=== PATIENT | male | born 1955 | race Caucasian/White ===

== ENCOUNTER 2017-10-06 18:45 | Emergency (ER) | payer OTHER ==
[~2017-10-06] VITALS: Ht 188 cm; Wt 83.9 kg
[~2017-10-06 18:45] MED LIST: CLEOCIN HCL150 MG PO; NOHOMEMEDICATIONS
[2017-10-06] MEDS ORDERED: KEFLEX500 M1 PO (19:52)
== END 2017-10-06 20:25 | disposition home or self-care (01) ==
LOC: ER 18:45
DX: R60.0 Localized edema (principal); Z59.0 Homelessness; F20.9 Schizophrenia, unspecified; Z98.890 Other specified postprocedural states; F17.200 Nicotine dependence, unspecified, uncomplicated

== ENCOUNTER 2018-10-02 07:47 | Emergency (ER) | payer OTHER ==
[~2018-10-02] VITALS: Ht 190.5 cm; Wt 81.7 kg
--- NOTE | ~2018-10-02 | EKG ---
[place] [address] [employer] [place] [address] ELECTROCARDIOGRAM REPORT Name: NATE AHN Room #: DEP Ar#: [id number] Admission: 10/02/18 Attend Phys: Discharge: 10/02/18 Date of : 55 Report #: [id number] THIS REPORT FOR: //name// [facility] ED Test Date: 2018-10-02 Test Time: 08:47:26 Pat Name: NATE AHN Department: Room: Gender: M Swedger: kf : 1955 Requested By: Price Rojo Order Number: [id number] MD: Geronimo Cesar Measurements Intervals [place] Rate: 75 P: 73 ND: 163 QRS: 29 QRSD: 88 T: 78 QT: 382 QTc: 427 Interpretive Statements Sinus rhythm Low voltage, extremity leads Early transition Baseline wander Nonspecific ST-T wave changes Compared to ECG 02/21/2006 15:42:49 No significant changes Electronically Signed On 10-02-2018 12:19:38 [employer]OP[employer]NAGER by Geronimo Cesar [email or web address] <ELECTRONICALLY SIGNED> By: Geronimo Cesar MD 10/02/18 1219 Geronimo Cesar MD /PAULETTE
[~2018-10-02 07:47] MED LIST changes: -PRILOSEC 20 MG20 MG PO; -TRAMADOL 50 MG50 MG PO
[2018-10-02 09:05] LABS: ABSOLUTE NEUTROPHILS 1.8 thou/uL (1.4-8.2); BASOPHILS 0.6 % (0.0-2.0); EOSINOPHILS 11.1 % (0.0-3.0); HEMATOCRIT 33.4 % (42.0-52.0); HEMOGLOBIN 11.4 gm/dL (14.0-18.0); LYMPHOCYTES 23.1 % (24.0-44.0); MCH 31.2 pg (26.0-34.0); MCV 91.7 fL (80.0-100.0); MONOCYTES 11.2 % (1.0-8.0); PLATELET COUNT 140 thou/uL (150-400); RBC 3.64 mil/uL (4.50-6.00); RDW 14.6 % (10.5-14.5); WBC 3.3 thou/uL (4.0-11.0)
[2018-10-02 09:08] LABS: ANION GAP 11 mmol/L (7-16); BUN 13 mg/dL (7-18); CALCIUM 9.3 mg/dL (8.5-10.1); CHLORIDE 103 mmol/L (98-107); CO2 23 mmol/L (21-32); CREATININE 0.8 mg/dL (0.7-1.3); GLUCOSE 96 mg/dL (74-106); POTASSIUM 3.9 mmol/L (3.5-5.1); SODIUM 137 mmol/L (136-145)
[2018-10-02 09:17] LABS: ALBUMIN 3.2 g/dL (3.4-5.0); LIPASE 315 U/L (73-393); SGOT 77 U/L (15-37); SGPT 77 U/L (30-65); TOTAL BILIRUBIN 0.8 mg/dL (<0.1-1.0); TOTAL PROTEIN 7.6 g/dL (6.4-8.2); TROPONIN-I <0.06 ng/mL (<0.06)
[2018-10-02 09:35] LABS: URINE BILIRUBIN NEGATIVE (Negative); URINE BLOOD NEGATIVE (Negative); URINE CLARITY CLEAR; URINE COLOR YELLOW; URINE GLUCOSE-RANDOM* NEGATIVE (Negative); URINE KETONES NEGATIVE (Negative); URINE LEUKOCYTES-REFLEX NEGATIVE (Negative); URINE NITRITE-REFLEX NEGATIVE (Negative); URINE PROTEIN (DIPSTICK) NEGATIVE (Negative)
[2018-10-02] MEDS ORDERED: TRAMADOL 50 MG50 MG PO (10:08)
[2018-10-02] MEDS ORDERED: PRILOSEC 20 MG20 MG PO (10:08)
[2018-10-02 10:27] VITALS: BP 132/69
== END 2018-10-02 10:28 | disposition home or self-care (01) ==
LOC: ER 07:47
PROVIDERS: Emergency Medicine
DX: R18.8 Other ascites (principal); K52.9 Noninfective gastroenteritis and colitis, unspecified; K74.60 Unspecified cirrhosis of liver; D72.819 Decreased white blood cell count, unspecified; R16.1 Splenomegaly, not elsewhere classified; D69.6 Thrombocytopenia, unspecified; F20.9 Schizophrenia, unspecified

== ENCOUNTER → 2018-10-02 | Emergency (ER) | payer OTHER ==
[~2018-10-02] VITALS: Ht 188 cm; Wt 74.8 kg
[~2018-10-02] MED LIST changes: +KEFLEX500 M1 PO; +PRILOSEC 20 MG20 MG PO; +TRAMADOL 50 MG50 MG PO
[2018-10-02 14:23] VITALS: BP 142/71
== END ==
LOC: ER 14:15
DX: Z53.21 Procedure and treatment not carried out due to patient leaving prior to being seen by health care provider (principal)

== ENCOUNTER 2021-01-01 20:14 | Emergency (ER) | payer OTHER ==
[~2021-01-01] VITALS: Ht 182.9 cm; Wt 77.1 kg
[~2021-01-01 20:14] MED LIST changes: +PRILOSEC 20 MG20 MG PO; +TRAMADOL 50 MG50 MG PO
[2021-01-01 20:33] LABS: HEMATOCRIT 33.1 % (42.0-52.0); HEMOGLOBIN 10.4 gm/dL (14.0-18.0); MCH 24.7 pg (26.0-34.0); MCHC 31.5 g/dL (28.0-37.0); MCV 78.6 fL (80.0-100.0); PLATELET COUNT 103 thou/uL (150-400); RBC 4.21 mil/uL (4.50-6.00); RDW 18.1 % (10.5-14.5); WBC 3.4 thou/uL (4.0-11.0)
[2021-01-01 20:46] LABS: ANION GAP 12 mmol/L (7-16); BUN 17 mg/dL (7-18); CALCIUM 8.5 mg/dL (8.5-10.1); CHLORIDE 105 mmol/L (98-107); CO2 21 mmol/L (21-32); CREATININE 0.9 mg/dL (0.7-1.3); GLUCOSE 154 mg/dL (74-106); POTASSIUM 3.6 mmol/L (3.5-5.1); SODIUM 138 mmol/L (136-145)
[2021-01-01 20:52] LABS: ALBUMIN 3.6 g/dL (3.4-5.0); DIRECT BILIRUBIN 0.3 mg/dL (<0.1-0.2); SGOT 74 U/L (15-37); SGPT 71 U/L (16-63); TOTAL BILIRUBIN 0.8 mg/dL (0.2-1.0); TOTAL PROTEIN 7.2 g/dL (6.4-8.2)
[2021-01-01 20:53] LABS: SALICYLATE < 2.8 mg/dL (2.8-20.0)
[2021-01-01 21:41] LABS: ABSOLUTE NEUTROPHILS 1.1 thou/uL (1.4-8.2)
[2021-01-01 21:42] LABS: ANISOCYTOSIS 2+
[2021-01-02 04:45] LABS: AMP/METHAMP POSITIVE (Negative); BARBITURATES Negative (Negative); BENZODIAZEPINES Negative (Negative); COCAINE Negative (Negative); METHADONE Negative (Negative); OPIATES Negative (Negative); PCP Negative (Negative)
[2021-01-02 20:00] VITALS: BP 140/72
== END 2021-01-02 20:07 ==
LOC: ER 20:14
PROVIDERS: Nurse Practitioner
DX: F15.10 Other stimulant abuse, uncomplicated (principal); R41.82 Altered mental status, unspecified; R44.1 Visual hallucinations; F17.210 Nicotine dependence, cigarettes, uncomplicated; Z20.822 Contact with and (suspected) exposure to COVID-19